=== PATIENT | male | born 1960 | race Two or more races ===

== ENCOUNTER 2018-04-20 08:53 | Day surgery (SDC) | payer OTHER ==
[~2018-04-20 08:53] MED LIST: Intestinex CAP PO; LOSARTAN-HCTZ1 EACH PO; OXYC1TAB9 PO
== END 2018-04-20 12:55 | disposition home or self-care (01) ==
LOC: AMB-ENDOS 08:53
DX: K64.8 Other hemorrhoids (principal)

== ENCOUNTER 2020-04-17 07:49 | Day surgery (SDC) | payer OTHER | END 2020-04-17 12:45 | disposition home or self-care (01) | LOC: AMB-ENDOS 07:49 | PROVIDERS: ATTEND Surgery | DX: K62.89 Other specified diseases of anus and rectum (principal); K64.8 Other hemorrhoids; Z20.822 Contact with and (suspected) exposure to COVID-19 ==